=== PATIENT | male | born 1950 | race Caucasian/White ===

== ENCOUNTER 2018-04-27 07:28 | Day surgery (SDC) | payer MEDICAID, MEDICARE ==
[~2018-04-27 07:28] MED LIST: CEFAZOLIN 2 Gram 2 GM/50 ML BAG IVPB ONE; FAMOTIDINE 20MG TABLET PO ONE; MECLIZINE 25 MG TABLET PO ONE; METOCLOPRAMIDE 10 MG TABLET PO ONE
[2018-04-27] MEDS ORDERED: MIDAZOLAM HCL 2MG/2ML VIAL IV ONE (07:29)
[2018-04-27] MEDS ORDERED: PROPOFOL 10 MG/ML VIAL IV ONE (07:29)
[2018-04-27] MEDS ORDERED: TRANEXAMIC ACID 1,000 MG/10 ML ML IV ONE (07:29)
[2018-04-27] MEDS ORDERED: 0.9 % SODIUM CHLORIDE 100ML 100 ML IV ONE ×2 (07:29)
[2018-04-27] MEDS ORDERED: LIDOCAINE 2% MDV (20MG/ML) 20ML VIAL IV ONE (07:29)
[2018-04-27] MEDS ORDERED: ROPIVACAINE HCL (NAROPIN) /PF 5MG/ML 20ML VIAL IV ONE (07:29)
[2018-04-27] MEDS ORDERED: DEXAMETHASONE 4 MG/ML 1ML VIAL IVP ONE (07:29)
[2018-04-27] MEDS ORDERED: FENTANYL PF 100MCG/2ML VIAL IV ONE (07:29)
[2018-04-27] MEDS ORDERED: METOCLOPRAMIDE HCL 10 MG/2 ML VIAL IVP PRN (10:45)
[2018-04-27] MEDS ORDERED: ACETAMINOPHEN 325 MG TAB PO PRN (10:45)
[2018-04-27] MEDS ORDERED: DIPHENHYDRAMINE HCL 25 MG CAPSULE PO PRN (10:45)
[2018-04-27] MEDS ORDERED: TRAMADOL HCL 50 MG TABLET PO PRN ×2 (10:45)
[2018-04-27] MEDS ORDERED: NALOXONE 0.4 MG/1 ML VIAL IVP PRN (10:45)
[2018-04-27] MEDS ORDERED: SENNOSIDES/DOCUSATE SODIUM UD CAPSULE PO PRN (10:45)
[2018-04-27] MEDS ORDERED: HYDROMORPHONE HCL 2 MG/ML VIAL IV PRN (10:45)
[2018-04-27] MEDS ORDERED: HYDROCODONE/APAP 5/325MG TABLET PO PRN (10:45)
[2018-04-27] MEDS ORDERED: ONDANSETRON HCL IV 4 MG/2 ML VIAL IVP PRN (10:45)
[2018-04-27] MEDS ORDERED: AL HYDROX/MAG HYDROX 30ML UD PO PRN (10:45)
[2018-04-27] MEDS ORDERED: OXYCODONE HCL/APAP 5MG/325MG TABLET PO PRN ×2 (10:45)
[2018-04-27] MEDS ORDERED: MAGNESIUM HYDROXIDE 30 ML UDC PO PRN (10:45)
[2018-04-27] MEDS ORDERED: ZOLPIDEM TARTRATE 5 MG TABLET PO PRN (10:45)
[2018-04-27] MEDS: LORATADINE 10 MG TABLET PO SCH (11:38)
[2018-04-27] MEDS: HYDROCODONE/APAP 5/325MG TABLET PO PRN ×2 (12:58→23:44)
[2018-04-27] MEDS ORDERED: TRANEXAMIC ACID 1,000 MG in 0.9 % SODIUM CHLORIDE 100ML 100 ML IVPB ONE (13:00)
[2018-04-27] MEDS: RINGERS SOLUTION,LACTATED 1,000 ML IV SCH (14:10)
--- NOTE | 2018-04-27 14:50 | Rehab Evaluation ---
Patient Information - Patient Information Diagnosis: OA R knee Ordered Treatment: PT Evaluate and Treat Status: Initial Evaluation Surgery: Yes (R TKA) Date of Surgery: 04/27/18 Past Medical/Surgical Hx: PAST MEDICAL/SURGICAL HISTORY Past Surgical History RIGHT KNEE SCOPE RIGHT SHOULDER SCOPE PROSTATECTOMY C SCOPES HERNIA REPAIRS X'S 2 PMH - Respiratory Hx Respiratory Disorders Yes Hx Bronchitis Yes: NOTHING RECENT Hx Pneumonia Yes: IN PAST PMH - Cardiovascular Hx Cardiovascular Disorders Yes Hx Abnormal EKG Yes: BUNDLE BRANCH BLOCK POSSIBLY Exercise Tolerance Good Comment: JESSICA HAS A WALKING ROUTE PMH - Neuro Hx Neurological Disorders No PMH - GI Hx Gastrointestinal Disorders No PMH - Hx Genitourinary Disorders Yes Hx Prostate Problems Yes: REMOVED CA PMH - Endocrine Hx Endocrine Disorders No PMH - Musculoskeletal Hx Musculoskeletal Disorders Yes Hx Arthritis Yes: RIGHT KNEE AND SHOULDERS PMH - Psych Hx Psychiatric Problems No PMH - Hematology/Oncology Hx Hematology/Oncology Yes Disorders Hx Cancer Yes: PROSTATE Hx Chemotherapy No Hx Radiation Therapy No Premorbid Status: Detail (The patient was independent with all mobility prior to surgery.) Social History: Detail (The patient lives with spouse in a 2 story house and 2 steps at the enterance with one railing. The patient will intially be staying on the first floor.The bathroom is equipped with a tub/shower combination, shower bench, standard height toilet. No grab bars are present in the bathroom. Patient has a standard walker, cane and spare parts clerk.) Precautions: [place], Fall, Other (WBAT on the R LE.) - Time With Patient Total Time Spent With Patient (Min): 30 Treatment Procedures: Detail (Initial Evaluation, gait training) Subjective Information - Subjective Information Per Patient (The patient has complaints of R knee pain level 5 at the highest.) Objective Data - Mental Status Patient Orientation: Oriented x3 - Visual Perception Appears within normal limits for therapeutic activities - ROM Not within normal limits (The patient's R knee was limited s/p surgery as to be expected. All other LE AROM is WNL.) - Strength/Tone Not within normal limits (The patient's R LE strength was not tested secondary to s/p surgery. The patient presents with quad weakness functionally ie: patient had difficulty lifting R LE with supine to sit. L LE strength was WFL.) - Bed Mobility Independent (The patient required min PA to lift R LE with supine to sit, and was independent with sit to supine. The patient was independent with use of trapeze for scooting up in bed.) - Transfers Independent (The patient was independent with sit to and from stand transfer and toilet transfer.) - Balance Balance Sitting: Good Balance Standing: Good - Gait Detail (The patient ambulated with 2 wheeled walker a distance of 69 feet x 1 WBAT on the R LE with supervision for safety only.) Therapy Assessment - Therapy Assessment Detail (The patient required assistance with bed mobility and supervision for safety with ambulation. Feel the patient will progress well with mobility.) Problem List - Problem List Physical Therapy Problem List: Detail (1)Assistance with bed mobility 2) Decreased R knee AROM and strength as to be expected following surgery) Goals - Goals Physical Therapy Goals: 1)The patient will be independent with TKA HEP. 2) The patient will be independent with bed mobility. 3) The patient will ambulate on stairs with supervision for safety. Prognosis - Prognosis Good Plan - Plan Physical Therapy Plan: PT 1-2 sessions for gait training on levels and stairs, bed mobility and instruction in HEP
[2018-04-27] MEDS: CEFAZOLIN 2 Gram 2 GM/50 ML BAG IVPB SCH (18:39)
[2018-04-27] MEDS: FONDAPARINUX 2.5 MG/0.5 ML SYR SQ SCH (18:48)
[2018-04-27] MEDS: ASPIRIN 325 MG TAB ENTERIC-COATED PO SCH (22:20)
[2018-04-28] MEDS: CEFAZOLIN 2 Gram 2 GM/50 ML BAG IVPB SCH ×2 (01:43→08:23)
[2018-04-28] MEDS: HYDROCODONE/APAP 5/325MG TABLET PO PRN (03:30)
--- NOTE | 2018-04-28 08:26 | Rehab Evaluation ---
Patient Information - Patient Information Diagnosis: OA R knee Ordered Treatment: OT Evaluate and Treat Status: Initial Evaluation Surgery: Yes (R TKA) Date of Surgery: 04/27/18 Past Medical/Surgical Hx: PAST MEDICAL/SURGICAL HISTORY Past Surgical History RIGHT KNEE SCOPE RIGHT SHOULDER SCOPE PROSTATECTOMY C SCOPES HERNIA REPAIRS X'S 2 PMH - Respiratory Hx Respiratory Disorders Yes Hx Bronchitis Yes: NOTHING RECENT Hx Pneumonia Yes: IN PAST PMH - Cardiovascular Hx Cardiovascular Disorders Yes Hx Abnormal EKG Yes: BUNDLE BRANCH BLOCK POSSIBLY Exercise Tolerance Good Comment: JESSICA HAS A WALKING ROUTE PMH - Neuro Hx Neurological Disorders No PMH - GI Hx Gastrointestinal Disorders No PMH - Hx Genitourinary Disorders Yes Hx Prostate Problems Yes: REMOVED CA PMH - Endocrine Hx Endocrine Disorders No PMH - Musculoskeletal Hx Musculoskeletal Disorders Yes Hx Arthritis Yes: RIGHT KNEE AND SHOULDERS PMH - Psych Hx Psychiatric Problems No PMH - Hematology/Oncology Hx Hematology/Oncology Yes Disorders Hx Cancer Yes: PROSTATE Hx Chemotherapy No Hx Radiation Therapy No Premorbid Status: Detail (The patient was independent with all mobility prior to surgery. He and spouse shared home mgmt, meal prep and laundry and he was responsible for yard work.) Social History: Detail (The patient lives with spouse in a 2 story house with basement. He has 2 steps at the entrance with one railing. The patient will initially be staying on the first floor. The bathroom is equipped with a tub/ shower combination with grab bars and a shower bench and a standard height toilet. Patient has a standard walker, 4 wheeled walker, cane and high lift mule operator.) Precautions: [place], Fall, Other (WBAT on the R LE.) - Time With Patient Total Time Spent With Patient (Min): 45 Treatment Procedures: Detail (OT eval low complexity) Subjective Information - Subjective Information Per Patient Objective Data - Pain Pain Present: Yes (09/25) - Mental Status Patient Orientation: Oriented x3 - Visual Perception Appears within normal limits for therapeutic activities - ROM Within normal limits (Simon UE AROM WNL) - Strength/Tone Within normal limits (Simon UE strength WNL) - Coordination Appears within normal limits for therapeutic activities - Bed Mobility Independent (Ind with supine to sit with trapeze.) - Transfers Independent (Ind with sit to stand from EOB and toilet heights.) - Balance Balance Sitting: Good Balance Standing: Good - Sensation Intact - Gait Detail (Pt ambulating to bathroom with standard walker Indly.) - ADL's/IADL's Detail (Pt educated and able to demonstrate learning of modified LE dressing techniques including donning shorts, doffing slipper socks, donning ernesto socks using sock aid and donning slip on shoes. Pt educated and verbalized understanding of kitchen and shower safety and modifications.) Therapy Assessment - Therapy Assessment Detail (Pt is Ind with modified LE dressing techniques. He purchased a sock aid for use at home.) Problem List - Problem List Physical Therapy Problem List: Detail (1)Assistance with bed mobility 2) Decreased R knee AROM and strength as to be expected following surgery) Occupational Therapy Problem List: Detail (No current IP OT problems identified. ) Goals - Goals Physical Therapy Goals: 1)The patient will be independent with TKA HEP. 2) The patient will be independent with bed mobility. 3) The patient will ambulate on stairs with supervision for safety. Occupational Therapy Goals: No current IP OT goals identified. Prognosis - Prognosis Good Plan - Plan Physical Therapy Plan: PT 1-2 sessions for gait training on levels and stairs, bed mobility and instruction in HEP Occupational Therapy Plan: No further IP OT recommended. Thank you for this referral.
--- NOTE | 2018-04-28 08:30 | Operative Note ---
DATE OF SURGERY: 04/27/2018 Surgeon: Matheus Cummings DO PREOPERATIVE DIAGNOSIS: Primary osteoarthritis of the right knee. POSTOPERATIVE DIAGNOSIS: Primary osteoarthritis of the right knee. OPERATION: Right total knee arthroplasty. DESCRIPTION OF PROCEDURE: This 67-year-old male was taken to the operating room and placed in the supine position on the operating room table. A spinal anesthetic was administered and the right lower extremity was elevated. It was prepped with Hibiclens and draped in the usual sterile fashion. It was exsanguinated and the tourniquet inflated to 300 mmHg. All scrub personnel wore personal isolation suits. An anterior longitudinal midline incision was made followed by a medial parapatellar arthrotomy incision. An intracondylar drill hole was made for the intramedullary alignment keri, and a 6-degree valgus 9 mm cut was made in the distal femur. The wafer of bone was removed. The femur was sized to a size 67.5 in the anterior-posterior dimension, slightly wider medial-laterally. The 4-in-1 cutting block was then pinned in 3 degrees of external rotation. The appropriate cuts were made and the wafer of bone removed. We then directed our attention to the proximal tibia, and an extramedullary alignment guide was used to cut the proximal tibia referencing a 10 mm cut off the lateral tibial plateau. Once the appropriate alignment with a block had been set, a 3-degree posterior slope cut was made and the wafer of bone was removed. Remnants of the menisci and osteophytes were removed from the posterior aspect of the joint. The tibia was sized to a size 75. The stem punch was used. The wound copiously irrigated with pulse lavage, lactated Ringer's solution. The patella was cut and restored to anatomic height with a 37 x 8.6 mm trial. The remainder of the trials were inserted, a 67.5 femur and a 75 tibia and a 10 mm bearing was seen to be the appropriate size, which would allow us to take the patient's knee through normal range of motion with excellent stability throughout the entire range. The patellofemoral joint was also stable. All trial components were then removed and the wound copiously irrigated with lactated Ringer's solution. All bony surfaces were dried, and all components were cemented. Initially, a size 75 tibial baseplate was cemented into place followed by the insertion of the tibial bearing, the femoral component, and finally the patella. Once the cement had hardened, the knee was again taken through range of motion and found to be stable. A drain was placed through a separate stab incision after the wound had been copiously irrigated with lactated Ringer's solution. The arthrotomy incision was closed with a #2 Vicryl. The subcutaneous tissue was closed with 0 Vicryl and the skin was stapled. Sterile dressings applied with a Polar Care. The patient was taken to the recovery room in satisfactory condition. GROSS PATHOLOGY: This patient demonstrated advanced osteoarthritis in the medial compartment and patellofemoral joint with full-thickness articular cartilage loss noted there with a lateral compartment being less affected. Final components inserted were a [employer] size 67.5 cruciate retaining femur, a size 75 tibial baseplate, a 10 mm anterior stabilized E1 bearing, and a 37 x 8.6 mm patella was used. CC: DO NILES Leonard
[2018-04-28] MEDS: RINGERS SOLUTION,LACTATED 1,000 ML IV SCH (11:15)
[2018-04-28] MEDS: ASPIRIN 325 MG TAB ENTERIC-COATED PO SCH (11:26)
[2018-04-28] MEDS: LORATADINE 10 MG TABLET PO SCH (11:26)
--- NOTE | 2018-04-28 11:54 | Physical Therapy Tx Note ---
Physical Therapy Tx Note - Treatment Note Tolerated: Good Total Time Spent With Patient: 20 Physical Therapy Tx Note: Detail (Patient states feeling good this morning. Patient transferred sit to and from stand CGA x1. Patient ambulated 156 feet with standard walker CGA/SBA x1. Patient ascended and descended 11 steps with one railing and walker CGA x1. Patient performed the following seated exercises x10 reps each: toe raises, heel raises, marching, heel slides, quad sets, and glut squeezes. Patient transferred sit to and from stand SBA x1. Patient ambulated 5 feet with standard walker SBA x1. Patient tolerated treatment well. Patient was left seated on bed with call light within reach.) Physical Therapy Problem List: Detail (1)Assistance with bed mobility 2) Decreased R knee AROM and strength as to be expected following surgery) Physical Therapy Goals: 1)The patient will be independent with TKA HEP. 2) The patient will be independent with bed mobility. 3) The patient will ambulate on stairs with supervision for safety. Prognosis: Good Physical Therapy Plan: Patient discharged from inpatient PT at this time due to all goals met.
[2018-04-28] MEDS: FONDAPARINUX 2.5 MG/0.5 ML SYR SQ SCH (13:01)
--- NOTE | 2018-04-29 08:30 | Discharge Summary ---
DATE OF ADMISSION: 04/27/2018 DATE OF DISCHARGE: 04/28/2018 ADMITTING DIAGNOSIS: Osteoarthritis of the right knee. DISCHARGE DIAGNOSIS: Osteoarthritis of the right knee. OPERATIVE PROCEDURE: Elective right total knee arthroplasty. HOSPITAL COURSE: This 67-year-old male was seen postop day 1 and doing extremely well. Cleared physical therapy and had no evidence of DVT, shortness of breath, or chest pain. He was ready for discharge. He will have outpatient physical therapy. He was instructed to wear his SOFY during the day and remove them at night. He will take aspirin 325 mg daily for 2 weeks. Also [place] 5/325 mg, #40, 1 every 4 hours as necessary for pain. Routine wound care instructions were given. He will follow up in my office in 2 weeks. Should there be any problems prior to being seen, he was instructed to call me. NILES
== END 2018-04-28 13:25 | disposition home or self-care (01) ==
LOC: SUR 07:28 → MEDSURG 10:36 → SUR 04-28 13:25
PROVIDERS: ATTEND Orthopaedic Surgery
DX: M17.11 Unilateral primary osteoarthritis, right knee (principal)
CPT/HCPCS: 27447; 01402; 64447; J3010; J1170; J0690 ×2; J1652 ×2; J3490; J2795; 76942; 97530; J7120